=== PATIENT | female | born 1980 | race Two or more races ===

== ENCOUNTER → 2024-08-18 | Outpatient (BNVA) | payer MEDICAID, SELFPAY | END | disposition home or self-care (01) | PROVIDERS: PCP Physician Assistant; Referring Provider Physician Assistant; Visit Provider Urology | DX: R30.0 Dysuria (principal); R39.198 Other difficulties with micturition; Z87.440 Personal history of urinary (tract) infections; R35.0 Frequency of micturition | CPT/HCPCS: 81003; 99212; G0463 ==